=== PATIENT | male | born 1975 | race Caucasian/White ===

== ENCOUNTER 2019-08-22 06:16 | Day surgery (SDC) | payer BC ==
[~2019-08-22] VITALS: Ht 198.1 cm; Wt 117.9 kg
--- NOTE | ~2019-08-22 | HP ---
PATIENT: JOHNATHAN ARCHULETA MEDICAL RECORD: [id number] ACCOUNT: [id number] LOCATION:[facility] : 73 ADMISSION DATE: 08/22/19 PCP: HISTORY AND PHYSICAL EXAMINATION HISTORY OF PRESENT ILLNESS: Mr. Archuleta is a 44-year-old male with chronic problems with nasal obstructions for many years and a history of nasal fracture, difficulty breathing, has been refractory to medical management. He is being admitted for septoplasty and bilateral inferior turbinate reduction. PAST MEDICAL HISTORY: Includes reactive airway disease. PAST SURGICAL HISTORY: Includes a kidney stone about 10 years ago. CURRENT MEDICATIONS: Dulera. ALLERGIES: PENICILLIN, CODEINE, ZITHROMAX, AND FLU SHOTS. PHYSICAL EXAMINATION: GENERAL: He is healthy-appearing, developmentally normal. FACE: Normal, symmetric, no lesions. EYES: Sclerae and conjunctivae are normal. EARS: Canals and TMs are normal. NOSE: Septal deviation, large inferior turbinates. ORAL CAVITY AND OROPHARYNX: Normal palate. Average tonsils. NECK: No masses, no adenopathy. CHEST: Clear. CARDIOVASCULAR: Regular rate and rhythm, no murmur. EXTREMITIES: Normal. IMPRESSION: Nasal obstruction refractory to medical management. PLAN: Septoplasty and bilateral inferior turbinate reduction. TRANSINT:[id number] Voice Confirmation ID: [id number] DOCUMENT ID: [id number] HUSSAIN JHAVERI MD CC: [id number] DICTATION DATE: 08/19/19 1057 EMPLOYEE ADVISER: 08/19/19 1108 [facility] [address] [place] [address]
--- NOTE | ~2019-08-22 | OP ---
PATIENT NAME: JOHNATHAN ARCHULETA JR MEDICAL RECORD: [id number] :73 LOCATION:[facility] ADMISSION DATE: SURGEON: HUSSAIN STARKS MD DATE OF OPERATION: 08/22/2019 PREOPERATIVE DIAGNOSES: Nasal obstruction, septal deviation, and turbinate hypertrophy. POSTOPERATIVE DIAGNOSES: Nasal obstruction, septal deviation, and turbinate hypertrophy. PROCEDURES: Septoplasty and bilateral inferior turbinate reduction. SURGEON: Hussain Starks MD ANESTHESIA: General orotracheal. BLOOD LOSS: 2 cc. SPECIMENS: None. NASAL PACKING: [place] splints bilaterally. COMPLICATIONS: None. DISPOSITION: Recovery stable. DESCRIPTION OF PROCEDURE: He was brought to operating room and placed in supine position, sedated and intubated by anesthesia. The table was turned 90 degrees. Head drapes applied. He was positioned, prepped and draped in usual fashion for nasal surgery. Using a headlight and nasal speculum, both sides of the nose were examined. Floor of the nose, septum, and inferior turbinates were injected with a total of less than 2 cc of 1% lidocaine with 1:100,000 epinephrine. Using a 1-1/2 inch 27-gauge needle, 2 Afrin pledgets were placed in each side of the nose. After waiting for decongestion, all Afrin pledgets were removed. The nose was again examined. Suction back to nasopharynx. A right-sided M[place] incision was made and ipsilateral mucoperichondrial flap was elevated and a bony cartilaginous spur was isolated inferiorly, dissected out with a caudal and removed. The bony cartilaginous junction was disarticulated. A contralateral posterior mucoperichondrial flap was elevated. Scissors were used to make a cut above and below the bony spur, which was removed. This allowed the septum to fall to the midline. Some relaxing incisions were made in the cartilage. Both the inferior turbinates were medialized with a freer. A [place] was used to take down the inferior redundant portion of the turbinates and suction cautery was used to stop any bleeding and both outfractured with a [place] elevator. The [place] incision was closed with multiple interrupted 4-0 chromic sutures. The nose was examined. Septum midline and intact. Both sides were suctioned and a good straight airway on both sides. [place] splints were placed bilaterally with mupirocin ointment and sutured through the anterior membranous septum with a 2-0 Prolene on a Vishal needle. He was awakened, extubated, and transported to recovery in good condition. No complications. TRANSINT:[id number] Voice Confirmation ID: [id number] DOCUMENT ID: [id number] OPERATIVE REPORT [id number] JOHNATHAN ARCHULETA JR, ERIC MD CC: [id number] DICTATION DATE: 08/22/19 1056 CONFERENCE COORDINATOR: 08/22/19 1340 [facility] [place] 08/22/19 [id number] [place] [address]
[2019-08-22] MEDS ORDERED: DULERA 200 MCG8.8 GM INH (07:02)
[2019-08-22] MEDS ORDERED: IBUPROFEN600 MG PO (07:03)
[2019-08-22 07:05] VITALS: BP 130/84; Ht 198.1 cm; Wt 117.9 kg
== END 2019-08-22 13:15 | disposition home or self-care (01) ==
LOC: D.OPS 06:16 → D.PAN 08:45 → D.OPS 09:15
PROVIDERS: ATTEND Otolaryngology
DX: J34.89 Other specified disorders of nose and nasal sinuses (principal); J34.2 Deviated nasal septum; J34.3 Hypertrophy of nasal turbinates